=== PATIENT | male | born 1970 | race Two or more races ===

== ENCOUNTER 2017-02-07 15:53 | Emergency (ER) | payer MEDICAID, OTHER ==
[~2017-02-07] VITALS: Ht 170.2 cm; Wt 78.5 kg
[~2017-02-07 15:53] MED LIST: GLIP-115 PO; LISI-275 PO; METF-490 PO
[2017-02-07 16:00] VITALS: BP 132/92
[2017-02-07 16:51] LABS: Basophils # (auto) 0 uL; Basophils % (auto) 0.5 % (0.0-2.0); CONDITION Y; Eosinophils # (auto) 0 uL; Eosinophils % (auto) 0.4 % (0.0-7.0); Hematocrit 47.7 % (41.0-53.0); Hemoglobin 16.5 g/dL (13.5-17.5); Lymphocytes # (auto) 1.3 uL; Lymphocytes % (auto) 16.5 % (10.0-50.0); Mean Corpuscular Hemoglobin 30.3 pg (28.0-32.0); Mean Corpuscular Hgb Conc. 34.7 g/dL (32.0-36.0); Mean Corpuscular Volume 87.2 fL (80.0-100.0); Mean Platelet Volume 9.5 fL (7.4-10.4); Monocytes # (auto) 0.4 uL; Monocytes % (auto) 5.5 % (0.0-12.0); Neutrophils # (auto) 5.9 uL; Neutrophils % (auto) 77.1 % (37.0-80.0); Platelet Count (auto) 229 10^3/uL (140-450); Red Cell Distribution Width 13.5 % (11.6-16.0); White Blood Cell 7.7 10^3/uL (4.4-10.8)
[2017-02-07 17:13] LABS: Albumin 3.8 g/dL (3.4-5.0); Alkaline Phosphatase 110 U/L (45-117); Anion Gap 9 (5-15); Aspartate Aminotransferase 10 U/L (15-37); BUN/Creatinine Ratio 17.4; Bilirubin, Total 0.8 mg/dL (0.2-1.0); Blood Urea Nitrogen 15 mg/dL (7-18); Calcium 8.8 mg/dL (8.5-10.1); Carbon Dioxide 23 mmol/L (21-32); Chloride 103 mmol/L (98-107); GFR African American 123 mL/min; GFR Non-African American 102 mL/min; Glucose 313 mg/dL (74-106); Potassium 3.9 mmol/L (3.5-5.1); Sodium 135 mmol/L (136-145); Total Protein 7.6 g/dL (6.4-8.2)
[2017-02-22] MEDS ORDERED: OMEP20CA74 PO (13:33)
[2017-02-22] MEDS ORDERED: INSUINJ37 SUBCUT (13:34)
== END 2017-02-07 23:42 | disposition left against medical advice (07) ==
LOC: ER 16:08
DX: R07.89 Other chest pain (principal); R06.02 Shortness of breath; Z53.21 Procedure and treatment not carried out due to patient leaving prior to being seen by health care provider
CPT/HCPCS: 36415; 71010; 80053; 84484; 85025; 93005

== ENCOUNTER 2017-02-08 08:43 | Emergency (ER) | payer MEDICAID, OTHER ==
[~2017-02-08] VITALS: Ht 170.2 cm; Wt 78.5 kg
[2017-02-08 10:17] LABS: Albumin 3.6 g/dL (3.4-5.0); Alkaline Phosphatase 99 U/L (45-117); Anion Gap 7 (5-15); Aspartate Aminotransferase 7 U/L (15-37); BUN/Creatinine Ratio 15.7; Bilirubin, Total 0.9 mg/dL (0.2-1.0); Blood Urea Nitrogen 16 mg/dL (7-18); Calcium 8.5 mg/dL (8.5-10.1); Carbon Dioxide 26 mmol/L (21-32); Chloride 102 mmol/L (98-107); GFR African American 101 mL/min; GFR Non-African American 84 mL/min; Magnesium 2.3 mg/dL (1.6-2.6); Potassium 4.1 mmol/L (3.5-5.1); Sodium 135 mmol/L (136-145); Total Protein 7.1 g/dL (6.4-8.2)
[2017-02-08 10:20] LABS: Glucose 453 mg/dL (74-106)
[2017-02-08] MEDS ORDERED: SODIUM CHLORIDE 0.9% 1,000 ML IV ONE (10:45)
[2017-02-08] MEDS ORDERED: InsuLIN REG 1unit/0.01ml Soln (100units/ml) IV ONE (10:45)
[2017-02-08 12:00] VITALS: BP 137/90
== END 2017-02-08 15:10 | disposition home or self-care (01) ==
LOC: ER 08:50
DX: F41.9 Anxiety disorder, unspecified (principal); R00.0 Tachycardia, unspecified; E11.9 Type 2 diabetes mellitus without complications; I10 Essential (primary) hypertension; E78.5 Hyperlipidemia, unspecified
CPT/HCPCS: 36415; 80053; 82962; 83735; 84484; 93005; 94761; 96361; 96374; 99285; J1815

== ENCOUNTER 2017-03-12 15:49 | Inpatient (IN) | payer BC, MEDICAID, OTHER ==
[~2017-03-12] VITALS: Ht 195.6 cm; Wt 79.8 kg
[~2017-03-12 15:49] MED LIST changes: +ASPI81CH43 PO; +ATOR20TA50 PO; +DOCU100C8 PO; +INSUINJ37 SUBCUT; -LISI-275 PO; +MET50T PO; +OMEP20CA74 PO; +TRAM50TA2 PO
[2017-03-12] MEDS ORDERED: SODIUM CHLORIDE 0.9% 1,000 ML IV ONE ×2 (16:00)
[2017-03-12] MEDS ORDERED: VANCOMYCIN 1GM/250ML D5W 250 ML IV ONE (16:00)
[2017-03-12] MEDS ORDERED: DEXTROSE (50%) 50ML SYRG IV PRN (16:30)
[2017-03-12] MEDS ORDERED: VANCOMYCIN PER PHARMACY 0 MG IV SCH (16:30)
[2017-03-12] MEDS ORDERED: ONDANSETRON HCL 4 MG/2 ML VIAL IV PRN (16:30)
[2017-03-12] MEDS ORDERED: LEVOFLOXACIN 500MG 100 ML IV ONE (16:30)
[2017-03-12] MEDS ORDERED: IOHEXOL 300 MG/ML 100ML BOTTLE IJ ONE (16:38)
[2017-03-12 16:47] LABS: Basophils # (auto) 0 uL; Basophils % (auto) 0.6 % (0.0-2.0); Eosinophils # (auto) 0.1 uL; Eosinophils % (auto) 1.1 % (0.0-7.0); Hematocrit 36.7 % (41.0-53.0); Hemoglobin 12.3 g/dL (13.5-17.5); INR 1.03 (0.9-1.15); Lymphocytes # (auto) 1.4 uL; Lymphocytes % (auto) 22.7 % (10.0-50.0); Mean Corpuscular Hemoglobin 29.1 pg (28.0-32.0); Mean Corpuscular Hgb Conc. 33.5 g/dL (32.0-36.0); Mean Corpuscular Volume 86.7 fL (80.0-100.0); Mean Platelet Volume 8.3 fL (6.9-10.8); Monocytes # (auto) 0.5 uL; Monocytes % (auto) 7.9 % (0.0-12.0); Neutrophils # (auto) 4.3 uL; Neutrophils % (auto) 67.7 % (37.0-80.0); Nucleated Red Blood Cells % 0.1 %; Partial Thromboplastin Time 29.4 sec (22.64-33.71); Platelet Count (auto) 342 10^3/uL (140-450); Prothrombin Time 11.2 sec (9.37-12.3); Red Cell Distribution Width 13.3 % (11.8-14.3); White Blood Cell 6.4 10^3/uL (4.4-10.8)
[2017-03-12 16:51] LABS: Albumin 3.1 g/dL (3.4-5.0); Anion Gap 8 (5-15); Aspartate Aminotransferase 9 U/L (15-37); BUN/Creatinine Ratio 13.1; Blood Urea Nitrogen 11 mg/dL (7-18); Calcium 8.5 mg/dL (8.5-10.1); Carbon Dioxide 26 mmol/L (21-32); Chloride 102 mmol/L (98-107); GFR African American 127 mL/min; GFR Non-African American 105 mL/min; Glucose 306 mg/dL (74-106); Potassium 4.2 mmol/L (3.5-5.1); Sodium 136 mmol/L (136-145)
[2017-03-12 17:03] LABS: Alkaline Phosphatase 88 U/L (45-117); Bilirubin, Total 0.4 mg/dL (0.2-1.0)
[2017-03-12] MEDS: ASPirin 81 mg TAB PO SCH (17:11)
[2017-03-12] MEDS: ACCU-CHEK COMFORT CURVE STRIP VI SCH ×2 (17:17→22:24)
[2017-03-12] MEDS: InsuLIN REG 1unit/0.01ml Soln (100units/ml) SC SCH ×2 (17:17→22:46)
[2017-03-12] MEDS: TAMSULOSIN HYDROCHLORIDE 0.4 MG CAP PO SCH (18:00)
[2017-03-12] MEDS: MORPHINE SULF INJ 2 MG/ML SYRINGE 1ML IV PRN (21:12)
[2017-03-12] MEDS ORDERED: METOPROLOL TARTRATE 50 MG TAB PO SCH (22:00)
[2017-03-12] MEDS: ATORVASTATIN 20 MG TAB PO SCH (22:24)
[2017-03-12] MEDS: INSULIN DETEMIR(LEVEMIR) 1unit/0.01ml Soln (100units/ml) SC SCH (22:47)
[2017-03-12] MEDS ORDERED: ACETAMINOPHEN 500 MG TAB PO PRN (23:45)
[2017-03-13] MEDS ORDERED: ACETAMINOPHEN 500 MG TAB PO PRN
[2017-03-13] MEDS: MORPHINE SULF INJ 2 MG/ML SYRINGE 1ML IV PRN ×4 (01:38→20:29)
[2017-03-13 01:56] VITALS: BP 137/76
[2017-03-13 03:00] LABS: Urine RBC None Seen /hpf (0 - 3)
[2017-03-13 03:20] LABS: Urine Bilirubin Negative (Negative); Urine Blood Negative /uL (Negative); Urine Color Yellow (Yellow); Urine Glucose TRACE mg/dL (Normal); Urine Ketone Negative (Negative); Urine Mucus FEW (None Seen); Urine Nitrite Negative (Negative); Urine Squamous Epithelial Cell FEW /hpf (<5); Urine Urobilinogen Normal (Negative)
[2017-03-13 04:58] VITALS: BP 115/72
[2017-03-13] MEDS: VANCOMYCIN 1GM/250ML D5W 250 ML IV SCH ×2 (06:01→17:52)
[2017-03-13] MEDS: InsuLIN REG 1unit/0.01ml Soln (100units/ml) SC SCH ×4 (06:17→22:24)
[2017-03-13] MEDS: INSULIN DETEMIR(LEVEMIR) 1unit/0.01ml Soln (100units/ml) SC SCH ×2 (06:17→22:22)
[2017-03-13] MEDS: HYDROcodone-ACET 5/325MG TAB PO PRN ×2 (06:17→17:51)
[2017-03-13] MEDS: ACCU-CHEK COMFORT CURVE STRIP VI SCH ×4 (06:17→22:14)
[2017-03-13 06:22] LABS: Basophils # (auto) 0.1 uL; Basophils % (auto) 0.7 % (0.0-2.0); Eosinophils # (auto) 0.1 uL; Eosinophils % (auto) 1.3 % (0.0-7.0); Hematocrit 37.8 % (41.0-53.0); Hemoglobin 12.4 g/dL (13.5-17.5); Lymphocytes # (auto) 2.3 uL; Lymphocytes % (auto) 31.1 % (10.0-50.0); Mean Corpuscular Hemoglobin 29.2 pg (28.0-32.0); Mean Corpuscular Hgb Conc. 32.8 g/dL (32.0-36.0); Mean Corpuscular Volume 88.8 fL (80.0-100.0); Mean Platelet Volume 7.9 fL (6.9-10.8); Monocytes # (auto) 0.7 uL; Monocytes % (auto) 9.8 % (0.0-12.0); Neutrophils # (auto) 4.2 uL; Neutrophils % (auto) 57.1 % (37.0-80.0); Platelet Count (auto) 282 10^3/uL (140-450); Red Cell Distribution Width 13.4 % (11.8-14.3); White Blood Cell 7.3 10^3/uL (4.4-10.8)
[2017-03-13 08:41] LABS: BUN/Creatinine Ratio 13.9; Calcium 8.5 mg/dL (8.5-10.1); Potassium 3.8 mmol/L (3.5-5.1)
[2017-03-13 09:00] VITALS: BP 117/74
[2017-03-13] MEDS ORDERED: POTASSIUM CHL 20 Meq TABLET PO ONE (09:15)
[2017-03-13] MEDS: ASPirin 81 mg TAB PO SCH (09:32)
[2017-03-13] MEDS: LEVOFLOXACIN 500MG 100 ML IV SCH (09:33)
[2017-03-13] MEDS ORDERED: METOPROLOL TARTRATE 50 MG TAB PO SCH (10:00)
[2017-03-13] MEDS: Boost Glucose Control 8 Ounces PO SCH ×2 (12:00→17:52)
[2017-03-13 13:00] VITALS: BP 118/74
[2017-03-13] MEDS ORDERED: METOPROLOL TARTRATE 25 MG TAB PO ONE (13:00)
[2017-03-13] MEDS: ENOXAPARIN SOD 40 MG/0.4 ML SYRINGE SC SCH (13:15)
[2017-03-13 17:00] VITALS: BP 109/70
[2017-03-13] MEDS: MICAFUNGIN SODIUM 100 MG in SODIUM CHL 0.9% 100 ML IV SCH (17:05)
[2017-03-13] MEDS: metFORMIN HYDROCHLORIDE 850 MG TAB PO SCH (17:50)
[2017-03-13] MEDS: TAMSULOSIN HYDROCHLORIDE 0.4 MG CAP PO SCH (17:50)
[2017-03-13 22:00] VITALS: BP 121/76
[2017-03-13] MEDS: ATORVASTATIN 20 MG TAB PO SCH (22:12)
[2017-03-13] MEDS: METOPROLOL TARTRATE 50 MG TAB PO SCH (22:14)
[2017-03-14 05:00] VITALS: BP 104/72
[2017-03-14 05:28] LABS: Basophils # (auto) 0.1 uL; Basophils % (auto) 0.9 % (0.0-2.0); Eosinophils # (auto) 0.1 uL; Eosinophils % (auto) 1.3 % (0.0-7.0); Hemoglobin 13.5 g/dL (13.5-17.5); Lymphocytes # (auto) 1.9 uL; Lymphocytes % (auto) 27.1 % (10.0-50.0); Mean Corpuscular Hemoglobin 28.9 pg (28.0-32.0); Mean Corpuscular Hgb Conc. 33.9 g/dL (32.0-36.0); Mean Corpuscular Volume 85.4 fL (80.0-100.0); Mean Platelet Volume 8.2 fL (6.9-10.8); Monocytes # (auto) 0.6 uL; Monocytes % (auto) 9.1 % (0.0-12.0); Neutrophils # (auto) 4.2 uL; Neutrophils % (auto) 61.6 % (37.0-80.0); Nucleated Red Blood Cells % 0.1 %; Platelet Count (auto) 308 10^3/uL (140-450); Red Cell Distribution Width 13.2 % (11.8-14.3); White Blood Cell 6.9 10^3/uL (4.4-10.8)
[2017-03-14 05:52] LABS: Calcium 8.9 mg/dL (8.5-10.1); Potassium 4.1 mmol/L (3.5-5.1)
[2017-03-14 05:57] LABS: BUN/Creatinine Ratio 13.9; Bilirubin, Total 0.5 mg/dL (0.2-1.0); Total Protein 7.3 g/dL (6.4-8.2)
[2017-03-14] MEDS: ACCU-CHEK COMFORT CURVE STRIP VI SCH ×4 (06:27→22:00)
[2017-03-14] MEDS: INSULIN DETEMIR(LEVEMIR) 1unit/0.01ml Soln (100units/ml) SC SCH ×2 (06:28→22:41)
[2017-03-14] MEDS: metFORMIN HYDROCHLORIDE 850 MG TAB PO SCH ×2 (06:28→17:26)
[2017-03-14] MEDS: glipiZIDE 5 MG TAB PO SCH (06:28)
[2017-03-14] MEDS: VANCOMYCIN 1GM/250ML D5W 250 ML IV SCH (06:30)
[2017-03-14] MEDS: InsuLIN REG 1unit/0.01ml Soln (100units/ml) SC SCH ×4 (06:31→22:40)
[2017-03-14] MEDS: MORPHINE SULF INJ 2 MG/ML SYRINGE 1ML IV PRN ×3 (06:41→20:50)
[2017-03-14] MEDS: Boost Glucose Control 8 Ounces PO SCH ×3 (08:00→18:00)
[2017-03-14 09:00] VITALS: BP 137/84
[2017-03-14] MEDS: ASPirin 81 mg TAB PO SCH (10:53)
[2017-03-14] MEDS: METOPROLOL TARTRATE 50 MG TAB PO SCH ×2 (10:53→22:00)
[2017-03-14] MEDS: LEVOFLOXACIN 500MG 100 ML IV SCH (10:54)
[2017-03-14] MEDS: ENOXAPARIN SOD 40 MG/0.4 ML SYRINGE SC SCH (10:55)
[2017-03-14 13:00] VITALS: BP 108/77
[2017-03-14] MEDS ORDERED: VANCOMYCIN 1GM/250ML D5W 250 ML IV SCH (14:00)
[2017-03-14] MEDS: MICAFUNGIN SODIUM 100 MG in SODIUM CHL 0.9% 100 ML IV SCH (16:30)
[2017-03-14] MEDS: TAMSULOSIN HYDROCHLORIDE 0.4 MG CAP PO SCH (17:26)
[2017-03-14 17:28] VITALS: BP 118/71
[2017-03-14 22:00] VITALS: BP 105/66
[2017-03-14] MEDS: ATORVASTATIN 20 MG TAB PO SCH (22:29)
[2017-03-14] MEDS: MULTIPLE VITAMINS W/ MINERALS TAB PO SCH (22:30)
[2017-03-14] MEDS: ASCORBIC ACID 500 MG TAB PO SCH (22:31)
[2017-03-15] MEDS: HYDROcodone-ACET 5/325MG TAB PO PRN ×2 (02:47→09:53)
[2017-03-15 05:00] VITALS: BP 113/71
[2017-03-15 05:34] LABS: Basophils # (auto) 0 uL; Basophils % (auto) 0.4 % (0.0-2.0); Eosinophils # (auto) 0.1 uL; Eosinophils % (auto) 1.2 % (0.0-7.0); Hematocrit 37.1 % (41.0-53.0); Hemoglobin 12.7 g/dL (13.5-17.5); Lymphocytes % (auto) 28.5 % (10.0-50.0); Mean Corpuscular Hemoglobin 29.4 pg (28.0-32.0); Mean Corpuscular Hgb Conc. 34.3 g/dL (32.0-36.0); Mean Corpuscular Volume 85.6 fL (80.0-100.0); Mean Platelet Volume 7.9 fL (6.9-10.8); Monocytes # (auto) 0.7 uL; Monocytes % (auto) 10.1 % (0.0-12.0); Neutrophils # (auto) 4.1 uL; Neutrophils % (auto) 59.8 % (37.0-80.0); Nucleated Red Blood Cells % 0.1 %; Platelet Count (auto) 286 10^3/uL (140-450); Red Cell Distribution Width 13.2 % (11.8-14.3); White Blood Cell 6.9 10^3/uL (4.4-10.8)
[2017-03-15 05:55] LABS: BUN/Creatinine Ratio 15.1; Calcium 8.8 mg/dL (8.5-10.1); Potassium 4.3 mmol/L (3.5-5.1)
[2017-03-15] MEDS: ACCU-CHEK COMFORT CURVE STRIP VI SCH ×4 (06:26→22:23)
[2017-03-15] MEDS: INSULIN DETEMIR(LEVEMIR) 1unit/0.01ml Soln (100units/ml) SC SCH ×2 (06:27→22:42)
[2017-03-15] MEDS: metFORMIN HYDROCHLORIDE 850 MG TAB PO SCH ×2 (06:27→17:28)
[2017-03-15] MEDS: glipiZIDE 5 MG TAB PO SCH (06:27)
[2017-03-15] MEDS: InsuLIN REG 1unit/0.01ml Soln (100units/ml) SC SCH ×4 (06:28→22:42)
[2017-03-15] MEDS: Boost Glucose Control 8 Ounces PO SCH ×3 (08:59→17:57)
[2017-03-15 09:00] VITALS: BP 106/59
[2017-03-15] MEDS: METOPROLOL TARTRATE 50 MG TAB PO SCH ×2 (09:50→22:00)
[2017-03-15] MEDS: ASPirin 81 mg TAB PO SCH (09:50)
[2017-03-15] MEDS: MULTIPLE VITAMINS W/ MINERALS TAB PO SCH ×2 (09:50→22:24)
[2017-03-15] MEDS: LEVOFLOXACIN 500MG 100 ML IV SCH (09:50)
[2017-03-15] MEDS: ASCORBIC ACID 500 MG TAB PO SCH ×2 (09:51→22:24)
[2017-03-15] MEDS: ENOXAPARIN SOD 40 MG/0.4 ML SYRINGE SC SCH (09:52)
[2017-03-15 13:00] VITALS: BP 118/70
[2017-03-15] MEDS: CEFTRIAXONE SODIUM 2 GM in D5W 5% 50 ML IV SCH (15:56)
[2017-03-15] MEDS: MICAFUNGIN SODIUM 100 MG in SODIUM CHL 0.9% 100 ML IV SCH (17:21)
[2017-03-15] MEDS: TAMSULOSIN HYDROCHLORIDE 0.4 MG CAP PO SCH (17:28)
[2017-03-15] MEDS: HYDROcodone-ACET 7.5/325MG TAB PO PRN ×2 (17:29→23:40)
[2017-03-15 17:30] VITALS: BP 97/66
[2017-03-15 20:20] LABS: INR 1.05 (0.9-1.15); Prothrombin Time 11.5 sec (9.37-12.3)
[2017-03-15 22:10] VITALS: BP 108/60
[2017-03-15] MEDS: ATORVASTATIN 20 MG TAB PO SCH (22:23)
[2017-03-16 04:43] VITALS: BP 110/70
[2017-03-16] MEDS: glipiZIDE 5 MG TAB PO SCH (06:33)
[2017-03-16] MEDS: metFORMIN HYDROCHLORIDE 850 MG TAB PO SCH ×2 (06:33→17:30)
[2017-03-16] MEDS: ACCU-CHEK COMFORT CURVE STRIP VI SCH ×4 (06:33→21:23)
[2017-03-16] MEDS: INSULIN DETEMIR(LEVEMIR) 1unit/0.01ml Soln (100units/ml) SC SCH ×2 (06:34→21:22)
[2017-03-16] MEDS: InsuLIN REG 1unit/0.01ml Soln (100units/ml) SC SCH ×4 (06:34→21:22)
[2017-03-16 08:00] VITALS: BP 110/64
[2017-03-16] MEDS: Boost Glucose Control 8 Ounces PO SCH ×3 (09:14→18:06)
[2017-03-16] MEDS: CEFTRIAXONE SODIUM 2 GM in D5W 5% 50 ML IV SCH (09:14)
[2017-03-16] MEDS: ENOXAPARIN SOD 40 MG/0.4 ML SYRINGE SC SCH (10:29)
[2017-03-16] MEDS: MULTIPLE VITAMINS W/ MINERALS TAB PO SCH ×2 (10:30→21:18)
[2017-03-16] MEDS: ASPirin 81 mg TAB PO SCH (10:30)
[2017-03-16] MEDS: LEVOFLOXACIN 500MG 100 ML IV SCH (10:30)
[2017-03-16] MEDS: ASCORBIC ACID 500 MG TAB PO SCH ×2 (10:30→21:18)
[2017-03-16] MEDS: METOPROLOL TARTRATE 50 MG TAB PO SCH ×2 (10:31→21:18)
[2017-03-16] MEDS: HYDROcodone-ACET 7.5/325MG TAB PO PRN ×2 (11:47→20:49)
[2017-03-16 12:00] VITALS: BP 122/81
[2017-03-16] MEDS ORDERED: LIDOCAINE 1% HCL (LOCAL ANESTH.) INJ 20ML MDV ID ONE (15:45)
[2017-03-16 16:54] VITALS: BP 97/58
[2017-03-16] MEDS: TAMSULOSIN HYDROCHLORIDE 0.4 MG CAP PO SCH (17:18)
[2017-03-16] MEDS: MICAFUNGIN SODIUM 100 MG in SODIUM CHL 0.9% 100 ML IV SCH (17:20)
[2017-03-16] MEDS: ATORVASTATIN 20 MG TAB PO SCH (21:17)
[2017-03-16] MEDS: SODIUM CHLOR 0.9% PF (SALINE LOCK) 10ML VIAL IV SCH (21:17)
[2017-03-16 22:00] VITALS: BP 122/79
[2017-03-17 05:00] VITALS: BP 101/57
[2017-03-17 05:49] LABS: Basophils # (auto) 0 uL; Basophils % (auto) 0.7 % (0.0-2.0); Eosinophils # (auto) 0.1 uL; Eosinophils % (auto) 1.5 % (0.0-7.0); Hematocrit 37.2 % (41.0-53.0); Hemoglobin 12.9 g/dL (13.5-17.5); Lymphocytes % (auto) 26.5 % (10.0-50.0); Mean Corpuscular Hemoglobin 29.4 pg (28.0-32.0); Mean Corpuscular Hgb Conc. 34.6 g/dL (32.0-36.0); Mean Corpuscular Volume 84.9 fL (80.0-100.0); Mean Platelet Volume 7.8 fL (6.9-10.8); Monocytes # (auto) 0.6 uL; Monocytes % (auto) 8.5 % (0.0-12.0); Neutrophils # (auto) 4.6 uL; Neutrophils % (auto) 62.8 % (37.0-80.0); Nucleated Red Blood Cells % 0.1 %; Platelet Count (auto) 268 10^3/uL (140-450); Red Cell Distribution Width 12.8 % (11.8-14.3); White Blood Cell 7.4 10^3/uL (4.4-10.8)
[2017-03-17 06:05] LABS: Calcium 8.6 mg/dL (8.5-10.1); Magnesium 2.1 mg/dL (1.6-2.6); Potassium 4.3 mmol/L (3.5-5.1)
[2017-03-17] MEDS: metFORMIN HYDROCHLORIDE 850 MG TAB PO SCH (06:16)
[2017-03-17] MEDS: glipiZIDE 5 MG TAB PO SCH (06:16)
[2017-03-17] MEDS: InsuLIN REG 1unit/0.01ml Soln (100units/ml) SC SCH ×2 (06:18→11:45)
[2017-03-17] MEDS: INSULIN DETEMIR(LEVEMIR) 1unit/0.01ml Soln (100units/ml) SC SCH (06:19)
[2017-03-17] MEDS: ACCU-CHEK COMFORT CURVE STRIP VI SCH ×2 (06:19→11:46)
[2017-03-17] MEDS: HYDROcodone-ACET 7.5/325MG TAB PO PRN (06:21)
[2017-03-17 07:38] VITALS: BP 102/59
[2017-03-17] MEDS: Boost Glucose Control 8 Ounces PO SCH ×2 (08:00→12:00)
[2017-03-17] MEDS: ASPirin 81 mg TAB PO SCH (08:57)
[2017-03-17] MEDS: ENOXAPARIN SOD 40 MG/0.4 ML SYRINGE SC SCH (08:57)
[2017-03-17] MEDS: ASCORBIC ACID 500 MG TAB PO SCH (08:57)
[2017-03-17] MEDS: CEFTRIAXONE SODIUM 2 GM in D5W 5% 50 ML IV SCH (08:57)
[2017-03-17] MEDS: MULTIPLE VITAMINS W/ MINERALS TAB PO SCH (08:57)
[2017-03-17] MEDS: METOPROLOL TARTRATE 50 MG TAB PO SCH (09:00)
[2017-03-17] MEDS: SODIUM CHLOR 0.9% PF (SALINE LOCK) 10ML VIAL IV SCH (10:29)
[2017-03-17 11:15] VITALS: BP 93/60
[2017-03-17] MEDS: LEVOFLOXACIN 500MG 100 ML IV SCH (11:31)
[2017-03-17 13:38] VITALS: BP 93/60
== END 2017-03-17 14:37 | disposition home or self-care (01) | DRG 863 ==
LOC: ER 15:50 → OVERFLOW 15:51 → TELE-EAST 19:55 → EAST 03-16 20:21
PROVIDERS: ADMIT Internal Medicine; ATTEND Internal Medicine
PROC: 02HV33Z Insertion of Infusion Device into Superior Vena Cava, Percutaneous Approach (ICD-10-PCS; principal; 2017-03-16)
DX: T81.4XXA Infection following a procedure, initial encounter (principal); I10 Essential (primary) hypertension; E11.9 Type 2 diabetes mellitus without complications; E78.5 Hyperlipidemia, unspecified; B99.8 Other infectious disease; I25.10 Atherosclerotic heart disease of native coronary artery without angina pectoris; Y83.2 Surgical operation with anastomosis, bypass or graft as the cause of abnormal reaction of the patient, or of later complication, without mention of misadventure at the time of the procedure; K21.9 Gastro-esophageal reflux disease without esophagitis; N35.9 Urethral stricture, unspecified; Z95.1 Presence of aortocoronary bypass graft; Z83.3 Family history of diabetes mellitus; Z82.49 Family history of ischemic heart disease and other diseases of the circulatory system; Z79.899 Other long term (current) drug therapy; Z87.438 Personal history of other diseases of male genital organs; Y92.89 Other specified places as the place of occurrence of the external cause
CPT/HCPCS: 36415; 71010; 71260; 80048; 80053; 80202; 81001; 82962; 83605; 83735; 84484; 85025; 85610; 85730; 87040; 87077; 87081; 87186; 87205; 94761; 96365; 96366; J0696; J1815; J1956; J2248; J7060

== ENCOUNTER 2017-05-13 11:17 | Emergency (ER) | payer BC ==
[~2017-05-13] VITALS: Ht 170.2 cm; Wt 78.0 kg
[2017-05-13 12:04] LABS: Basophils # (auto) 0 uL; Basophils % (auto) 0.8 % (0.0-2.0); Eosinophils # (auto) 0.1 uL; Eosinophils % (auto) 1.2 % (0.0-7.0); Hematocrit 47.2 % (41.0-53.0); Hemoglobin 15.9 g/dL (13.5-17.5); Lymphocytes # (auto) 1.6 uL; Mean Corpuscular Hemoglobin 28.2 pg (28.0-32.0); Mean Corpuscular Hgb Conc. 33.6 g/dL (32.0-36.0); Mean Corpuscular Volume 84.1 fL (80.0-100.0); Monocytes # (auto) 0.4 uL; Monocytes % (auto) 7.2 % (0.0-12.0); Neutrophils # (auto) 3.3 uL; Neutrophils % (auto) 61.8 % (37.0-80.0); Nucleated Red Blood Cells % 0.3 %; Platelet Count (auto) 215 10^3/uL (140-450); Red Cell Distribution Width 14.6 % (11.8-14.3); White Blood Cell 5.4 10^3/uL (4.4-10.8)
[2017-05-13] MEDS ORDERED: LORazepam 0.5 MG TAB PO ONE (12:30)
[2017-05-13 12:40] LABS: Albumin 4.1 g/dL (3.4-5.0); Alkaline Phosphatase 157 U/L (45-117); Anion Gap 11 (5-15); Aspartate Aminotransferase 10 U/L (15-37); BUN/Creatinine Ratio 18.9; Bilirubin, Total 0.5 mg/dL (0.2-1.0); Blood Urea Nitrogen 20 mg/dL (7-18); Calcium 8.7 mg/dL (8.5-10.1); Carbon Dioxide 26 mmol/L (21-32); Chloride 97 mmol/L (98-107); GFR African American 97 mL/min; GFR Non-African American 80 mL/min; Magnesium 2.7 mg/dL (1.6-2.6); Potassium 4.7 mmol/L (3.5-5.1); Sodium 134 mmol/L (136-145); Total Protein 7.9 g/dL (6.4-8.2)
[2017-05-13 12:45] LABS: Glucose 536 mg/dL (74-106)
[2017-05-13] MEDS ORDERED: SODIUM CHLORIDE 0.9% 1,000 ML IV ONE (13:00)
[2017-05-13] MEDS ORDERED: InsuLIN REG 1unit/0.01ml Soln (100units/ml) IV ONE ×2 (13:00→13:30)
[2017-05-13] MEDS ORDERED: InsuLIN REG 1unit/0.01ml Soln (100units/ml) ONE (13:15)
[2017-05-13 14:27] VITALS: BP 129/82
[2017-05-13] MEDS ORDERED: HYDROcodone-ACET 5/325MG TAB PO ONE (14:30)
== END 2017-05-13 14:44 | disposition home or self-care (01) ==
LOC: ER 11:17
DX: F41.9 Anxiety disorder, unspecified (principal); E11.9 Type 2 diabetes mellitus without complications; Z86.73 Personal history of transient ischemic attack (TIA), and cerebral infarction without residual deficits; Z95.1 Presence of aortocoronary bypass graft; Z79.899 Other long term (current) drug therapy; Z79.4 Long term (current) use of insulin
CPT/HCPCS: 36415; 71020; 80053; 82962; 83735; 84484; 85025; 93005; 94761; 96361; 96374; 99285; J1815

== ENCOUNTER 2018-07-02 15:03 | Emergency (ER) | payer BC ==
[~2018-07-02] VITALS: Ht 170.2 cm; Wt 81.6 kg
[2018-07-02 15:10] VITALS: BP 132/87
[2018-07-02 15:28] LABS: Basophils # (auto) 0.1 uL; Eosinophils # (auto) 0.1 uL; Eosinophils % (auto) 1.4 % (0.0-7.0); Hematocrit 47.7 % (41.0-53.0); Hemoglobin 16.7 g/dL (13.5-17.5); Lymphocytes # (auto) 2.3 uL; Lymphocytes % (auto) 33.9 % (10.0-50.0); Mean Corpuscular Hemoglobin 30.3 pg (28.0-32.0); Mean Corpuscular Volume 86.4 fL (80.0-100.0); Monocytes # (auto) 0.4 uL; Monocytes % (auto) 5.9 % (0.0-12.0); Neutrophils % (auto) 57.8 % (37.0-80.0); Nucleated Red Blood Cells % 0.3 %; Platelet Count (auto) 174 10^3/uL (140-450); Red Blood Cells 5.52 10^6/uL (4.5-5.90); Red Cell Distribution Width 13.1 % (11.8-14.3); White Blood Cell 6.8 10^3/uL (4.4-10.8)
[2018-07-02 15:49] LABS: Albumin 3.9 g/dL (3.4-5.0); Amylase 55 U/L (25-115); Anion Gap 6 (5-15); Blood Urea Nitrogen 16 mg/dL (7-18); Calcium 8.6 mg/dL (8.5-10.1); Carbon Dioxide 25 mmol/L (21-32); Chloride 105 mmol/L (98-107); Glucose 299 mg/dL (74-106); Lipase 286 U/L (73-393); Sodium 136 mmol/L (136-145)
[2018-07-02 15:52] LABS: Alanine Aminotransferase 45 U/L (16-61); Alkaline Phosphatase 92 U/L (45-117); Aspartate Aminotransferase 16 U/L (15-37); BUN/Creatinine Ratio 17.4; Bilirubin, Total 0.6 mg/dL (0.2-1.0); GFR African American > 60 mL/min; GFR Non-African American > 60 mL/min; Total Protein 6.8 g/dL (6.4-8.2)
== END 2018-07-02 20:54 | disposition left against medical advice (07) ==
LOC: ER 15:06
DX: R10.31 Right lower quadrant pain (principal); Z53.21 Procedure and treatment not carried out due to patient leaving prior to being seen by health care provider
CPT/HCPCS: 36415; 80053; 82150; 83690; 85025

== ENCOUNTER 2019-03-29 15:29 | Emergency (ER) | payer BC, MEDICAID ==
[~2019-03-29] VITALS: Ht 170.2 cm; Wt 61.2 kg
[~2019-03-29 15:29] MED LIST changes: -GLIP-115 PO; +GLIP5TAB12 PO
[2019-03-29 16:22] LABS: Alanine Aminotransferase 34 U/L (16-61); Albumin 3.6 g/dL (3.4-5.0); Anion Gap 10 (5-15); Aspartate Aminotransferase 16 U/L (15-37); BUN/Creatinine Ratio 12.4; Blood Urea Nitrogen 13 mg/dL (7-18); Calcium 8.1 mg/dL (8.5-10.1); Carbon Dioxide 25 mmol/L (21-32); Chloride 104 mmol/L (98-107); GFR African American 97 mL/min; GFR Non-African American 80 mL/min; Potassium 4.1 mmol/L (3.5-5.1); Sodium 139 mmol/L (136-145)
[2019-03-29 16:24] LABS: INR 0.99 (0.9-1.15); Partial Thromboplastin Time 27.9 sec (23.64-32.05)
[2019-03-29 16:27] LABS: Alkaline Phosphatase 123 U/L (45-117); Bilirubin, Total 0.6 mg/dL (0.2-1.0); Total Protein 6.7 g/dL (6.4-8.2)
[2019-03-29 16:31] LABS: Basophils # (auto) 0.1 uL; Basophils % (auto) 0.9 % (0.0-2.0); Eosinophils # (auto) 0.1 uL; Eosinophils % (auto) 1.1 % (0.0-7.0); Hematocrit 44.3 % (41.0-53.0); Hemoglobin 15.4 g/dL (13.5-17.5); Lymphocytes # (auto) 1.7 uL; Lymphocytes % (auto) 29.4 % (10.0-50.0); Mean Corpuscular Hemoglobin 30.7 pg (28.0-32.0); Mean Corpuscular Hgb Conc. 34.8 g/dL (32.0-36.0); Monocytes # (auto) 0.4 uL; Monocytes % (auto) 6.4 % (0.0-12.0); Neutrophils # (auto) 3.6 uL; Neutrophils % (auto) 62.2 % (37.0-80.0); Platelet Count (auto) 170 10^3/uL (140-450); Red Blood Cells 5.03 10^6/uL (4.5-5.90); Red Cell Distribution Width 13.6 % (11.8-14.3); White Blood Cell 5.7 10^3/uL (4.4-10.8)
[2019-03-29 16:46] LABS: Glucose 410 mg/dL (74-106)
[2019-03-29] MEDS ORDERED: SODIUM CHLORIDE 0.9% 1,000 ML IVB ONE (17:02)
[2019-03-29 17:43] VITALS: BP 113/71
[2019-03-29] MEDS ORDERED: SOD CHL 0.45% 1,000 ML IV ONE (20:00)
[2019-03-29] MEDS ORDERED: INSULIN LANTUS (GLARGINE) 1 /0.01ml (100units/ml) SC ONE (22:00)
== END 2019-03-29 23:06 | disposition home or self-care (01) ==
LOC: ER 15:29
DX: R07.9 Chest pain, unspecified (principal); G45.9 Transient cerebral ischemic attack, unspecified; E11.65 Type 2 diabetes mellitus with hyperglycemia; I25.810 Atherosclerosis of coronary artery bypass graft(s) without angina pectoris; K21.9 Gastro-esophageal reflux disease without esophagitis; E78.5 Hyperlipidemia, unspecified; Z95.1 Presence of aortocoronary bypass graft; Z79.82 Long term (current) use of aspirin; Z79.84 Long term (current) use of oral hypoglycemic drugs; Z79.899 Other long term (current) drug therapy
CPT/HCPCS: 36415; 70450; 71045; 80053; 82962; 84484; 85025; 85610; 85730; 93005; 94761; 96360; 96361; 96372; 99284; J1815; J7030

== ENCOUNTER 2020-04-15 14:54 | Inpatient (IN) | payer BC, MEDICAID ==
[~2020-04-15] VITALS: Ht 170.2 cm; Wt 80.1 kg
[2020-04-15] MEDS ORDERED: MORPHINE SULF INJ 2 MG/ML SYRINGE 1ML IV ONE (15:30)
[2020-04-15] MEDS ORDERED: SODIUM CHLORIDE 0.9% 1,000 ML IV ONE (15:30)
[2020-04-15] MEDS ORDERED: ASPirin 81 mg TAB PO ONE (15:30)
[2020-04-15] MEDS ORDERED: NITROGLYCERIN 0.4 MG SL TAB SL ONE (15:30)
[2020-04-15] MEDS ORDERED: ONDANSETRON HCL 4 MG/2 ML VIAL IV ONE (15:30)
[2020-04-15 16:28] LABS: Basophils # (auto) 0 10 ^3/uL (0-0.2); Basophils % (auto) 0.7 % (0.0-2.0); Eosinophils # (auto) 0.1 10 ^3/uL (0-0.8); Eosinophils % (auto) 0.9 % (0.0-7.0); Hematocrit 41.8 % (41.0-53.0); Hemoglobin 14.6 g/dL (13.5-17.5); Mean Corpuscular Hemoglobin 30.2 pg (28.0-32.0); Mean Corpuscular Hgb Conc. 34.8 g/dL (32.0-36.0); Mean Corpuscular Volume 86.8 fL (80.0-100.0); Monocytes # (auto) 0.5 10 ^3/uL (0-1.3); Monocytes % (auto) 7.5 % (0.0-12.0); Neutrophils # (auto) 4.7 10 ^3/uL (1.6-8.6); Neutrophils % (auto) 74.9 % (37.0-80.0); Nucleated Red Blood Cells % 0.2 %; Platelet Count (auto) 167 10^3/uL (140-450); Red Blood Cells 4.81 10^6/uL (4.5-5.90); Red Cell Distribution Width 13.3 % (11.8-14.3); White Blood Cell 6.3 10^3/uL (4.4-10.8)
[2020-04-15 16:40] LABS: Alanine Aminotransferase 22 U/L (16-61); Albumin 3.4 g/dL (3.4-5.0); Anion Gap 6 (5-15); Aspartate Aminotransferase 9 U/L (15-37); BUN/Creatinine Ratio 12.9; Blood Urea Nitrogen 12 mg/dL (7-18); Calcium 8.2 mg/dL (8.5-10.1); Carbon Dioxide 25 mmol/L (21-32); Chloride 105 mmol/L (98-107); GFR African American 111 mL/min; GFR Non-African American 92 mL/min; Glucose 239 mg/dL (74-106); Magnesium 1.7 mg/dL (1.6-2.6); Potassium 3.8 mmol/L (3.5-5.1); Sodium 136 mmol/L (136-145)
[2020-04-15 16:45] LABS: Alkaline Phosphatase 107 U/L (45-117); Bilirubin, Total 0.7 mg/dL (0.2-1.0); Total Protein 6.8 g/dL (6.4-8.2)
[2020-04-15 16:49] LABS: INR 1.01 (0.9-1.15); Partial Thromboplastin Time 28.7 sec (23.0-31.2)
[2020-04-15] MEDS ORDERED: MORPHINE SULF INJ 2 MG/ML SYRINGE 1ML IV PRN (19:15)
[2020-04-15] MEDS ORDERED: LABETALOL HCL 5 MG/ML 4ML SYRINGE IV PRN (19:15)
[2020-04-15] MEDS ORDERED: NITROGLYCERIN 0.4 MG SL TAB SL PRN (19:15)
[2020-04-15] MEDS ORDERED: ACETAMINOPHEN 500 MG TAB PO PRN (19:15)
[2020-04-15] MEDS ORDERED: ONDANSETRON HCL 4 MG/2 ML VIAL IV PRN (19:45)
[2020-04-15 20:47] VITALS: BP 106/68
[2020-04-15 22:00] VITALS: BP 106/68
[2020-04-15] MEDS ORDERED: METOPROLOL TARTRATE 50 MG TAB PO SCH (22:00)
[2020-04-15] MEDS ORDERED: INSULIN LANTUS (GLARGINE) 1 /0.01ml (100units/ml) SC SCH (22:00)
[2020-04-16] MEDS: ATORVASTATIN 20 MG TAB PO SCH ×2 (00:06→22:23)
[2020-04-16] MEDS: LORazepam 0.5 MG TAB PO PRN ×2 (00:12→22:23)
[2020-04-16 06:15] LABS: Basophils # (auto) 0 10 ^3/uL (0-0.2); Basophils % (auto) 0.7 % (0.0-2.0); Eosinophils # (auto) 0.1 10 ^3/uL (0-0.8); Hematocrit 42.1 % (41.0-53.0); Hemoglobin 14.8 g/dL (13.5-17.5); Lymphocytes # (auto) 1.2 10 ^3/uL (0.4-5.4); Lymphocytes % (auto) 20.7 % (10.0-50.0); Mean Corpuscular Hemoglobin 30.3 pg (28.0-32.0); Mean Corpuscular Hgb Conc. 35.2 g/dL (32.0-36.0); Mean Corpuscular Volume 86.3 fL (80.0-100.0); Monocytes # (auto) 0.6 10 ^3/uL (0-1.3); Monocytes % (auto) 10.6 % (0.0-12.0); Neutrophils # (auto) 3.8 10 ^3/uL (1.6-8.6); Nucleated Red Blood Cells % 0.5 %; Platelet Count (auto) 165 10^3/uL (140-450); Red Blood Cells 4.88 10^6/uL (4.5-5.90); Red Cell Distribution Width 13.4 % (11.8-14.3); White Blood Cell 5.6 10^3/uL (4.4-10.8)
[2020-04-16] MEDS: glipiZIDE 5 MG TAB PO SCH ×2 (06:34→18:09)
[2020-04-16 06:44] LABS: Calcium 8.1 mg/dL (8.5-10.1); Chloride 108 mmol/L (98-107); Potassium 3.6 mmol/L (3.5-5.1); Sodium 140 mmol/L (136-145)
[2020-04-16 06:52] LABS: Alanine Aminotransferase 21 U/L (16-61); Albumin 3.2 g/dL (3.4-5.0); Alkaline Phosphatase 66 U/L (45-117); Anion Gap 7 (5-15); Aspartate Aminotransferase 7 U/L (15-37); BUN/Creatinine Ratio 15.7; Bilirubin, Total 0.7 mg/dL (0.2-1.0); Blood Urea Nitrogen 11 mg/dL (7-18); Carbon Dioxide 25 mmol/L (21-32); Cholesterol 87 mg/dL (< 200); GFR African American 154 mL/min; GFR Non-African American 127 mL/min; Glucose 86 mg/dL (74-106); HDL Cholesterol 39 mg/dL (40-59); LDL Cholesterol 43 mg/dL (< 100); Total Protein 6.3 g/dL (6.4-8.2); Triglycerides 82 mg/dL (< 150)
[2020-04-16] MEDS ORDERED: glipiZIDE 5 MG TAB PO SCH (07:00)
[2020-04-16 08:45] VITALS: BP 122/82
[2020-04-16] MEDS: DOCUSATE SOD 100 MG CAP PO SCH (11:12)
[2020-04-16] MEDS: PANTOPRAZOLE 40 MG TAB PO SCH (11:12)
[2020-04-16] MEDS: ASPirin 81 mg TAB PO SCH (11:13)
[2020-04-16 13:00] VITALS: BP 127/74
[2020-04-16 16:36] VITALS: BP 119/69
[2020-04-16] MEDS: metFORMIN HYDROCHLORIDE 500 MG TAB PO SCH (20:04)
[2020-04-16 22:00] VITALS: BP 152/81
[2020-04-17 05:00] VITALS: BP 107/70
[2020-04-17 05:22] LABS: Basophils # (auto) 0 10 ^3/uL (0-0.2); Basophils % (auto) 0.4 % (0.0-2.0); Eosinophils # (auto) 0.1 10 ^3/uL (0-0.8); Eosinophils % (auto) 1.4 % (0.0-7.0); Hematocrit 42.4 % (41.0-53.0); Hemoglobin 14.9 g/dL (13.5-17.5); Lymphocytes # (auto) 1.4 10 ^3/uL (0.4-5.4); Lymphocytes % (auto) 26.5 % (10.0-50.0); Mean Corpuscular Hemoglobin 30.4 pg (28.0-32.0); Mean Corpuscular Hgb Conc. 35.1 g/dL (32.0-36.0); Mean Corpuscular Volume 86.5 fL (80.0-100.0); Monocytes # (auto) 0.8 10 ^3/uL (0-1.3); Monocytes % (auto) 14.9 % (0.0-12.0); Neutrophils % (auto) 56.8 % (37.0-80.0); Nucleated Red Blood Cells % 0.3 %; Platelet Count (auto) 180 10^3/uL (140-450); Red Blood Cells 4.91 10^6/uL (4.5-5.90); Red Cell Distribution Width 13.5 % (11.8-14.3); White Blood Cell 5.2 10^3/uL (4.4-10.8)
[2020-04-17 05:43] LABS: Chloride 107 mmol/L (98-107); Potassium 3.9 mmol/L (3.5-5.1); Sodium 138 mmol/L (136-145)
[2020-04-17 05:52] LABS: Anion Gap 3 (5-15); BUN/Creatinine Ratio 15.6; Blood Urea Nitrogen 14 mg/dL (7-18); Calcium 8.3 mg/dL (8.5-10.1); Carbon Dioxide 28 mmol/L (21-32); GFR African American 115 mL/min; GFR Non-African American 95 mL/min; Glucose 164 mg/dL (74-106)
[2020-04-17] MEDS: glipiZIDE 5 MG TAB PO SCH ×2 (06:01→17:58)
[2020-04-17] MEDS: PANTOPRAZOLE 40 MG TAB PO SCH (08:34)
[2020-04-17] MEDS: ASPirin 81 mg TAB PO SCH (08:34)
[2020-04-17] MEDS: DOCUSATE SOD 100 MG CAP PO SCH (08:34)
[2020-04-17] MEDS: metFORMIN HYDROCHLORIDE 500 MG TAB PO SCH ×2 (08:34→17:59)
[2020-04-17 08:53] VITALS: BP_SYST 126
[2020-04-17 13:00] VITALS: BP 116/78
[2020-04-17 16:36] VITALS: BP 113/73
[2020-04-17] MEDS: LORazepam 0.5 MG TAB PO PRN (21:18)
[2020-04-17 22:00] VITALS: BP 133/74
[2020-04-17] MEDS: ATORVASTATIN 20 MG TAB PO SCH (22:00)
[2020-04-18 05:00] VITALS: BP 122/71
[2020-04-18 06:15] LABS: Basophils # (auto) 0 10 ^3/uL (0-0.2); Basophils % (auto) 0.5 % (0.0-2.0); Hematocrit 44.9 % (41.0-53.0); Hemoglobin 15.6 g/dL (13.5-17.5); Lymphocytes # (auto) 1.6 10 ^3/uL (0.4-5.4); Lymphocytes % (auto) 29.7 % (10.0-50.0); Mean Corpuscular Hemoglobin 30.3 pg (28.0-32.0); Mean Corpuscular Hgb Conc. 34.8 g/dL (32.0-36.0); Neutrophils # (auto) 2.6 10 ^3/uL (1.6-8.6); Neutrophils % (auto) 49.8 % (37.0-80.0); Nucleated Red Blood Cells % 0.6 %; Platelet Count (auto) 181 10^3/uL (140-450); Red Blood Cells 5.15 10^6/uL (4.5-5.90); Red Cell Distribution Width 13.1 % (11.8-14.3); White Blood Cell 5.2 10^3/uL (4.4-10.8)
[2020-04-18 06:33] LABS: Chloride 105 mmol/L (98-107); Potassium 4.2 mmol/L (3.5-5.1); Sodium 138 mmol/L (136-145)
[2020-04-18 06:45] LABS: Eosinophils # (auto) 0.2 10 ^3/uL (0-0.8)
[2020-04-18 06:46] LABS: Anion Gap 3 (5-15); BUN/Creatinine Ratio 15.3; Blood Urea Nitrogen 15 mg/dL (7-18); Calcium 8.6 mg/dL (8.5-10.1); Carbon Dioxide 30 mmol/L (21-32); GFR African American 105 mL/min; GFR Non-African American 86 mL/min; Glucose 229 mg/dL (74-106)
[2020-04-18] MEDS: glipiZIDE 5 MG TAB PO SCH (06:52)
[2020-04-18] MEDS ORDERED: ADENOSINE 67 MG in GIVE UN-DILUTED 0 ML IV STA (08:38)
[2020-04-18] MEDS: metFORMIN HYDROCHLORIDE 500 MG TAB PO SCH (08:38)
[2020-04-18 09:14] VITALS: BP 102/81
[2020-04-18 09:31] VITALS: BP 129/81
[2020-04-18] MEDS: ASPirin 81 mg TAB PO SCH (10:30)
[2020-04-18] MEDS: PANTOPRAZOLE 40 MG TAB PO SCH (10:30)
[2020-04-18] MEDS: DOCUSATE SOD 100 MG CAP PO SCH (10:31)
[2020-04-18 12:42] VITALS: BP 108/76
[2020-04-18 14:38] VITALS: BP 111/71
== END 2020-04-18 15:20 | disposition home or self-care (01) | DRG 203 ==
LOC: ER 14:54 → TELE-WESTW 14:55
PROVIDERS: ADMIT Family Medicine; ATTEND Internal Medicine
DX: M94.0 Chondrocostal junction syndrome [Tietze] (principal); F12.10 Cannabis abuse, uncomplicated; I25.10 Atherosclerotic heart disease of native coronary artery without angina pectoris; K21.9 Gastro-esophageal reflux disease without esophagitis; E78.00 Pure hypercholesterolemia, unspecified; E78.5 Hyperlipidemia, unspecified; I10 Essential (primary) hypertension; Z82.49 Family history of ischemic heart disease and other diseases of the circulatory system; Z83.3 Family history of diabetes mellitus; Z95.1 Presence of aortocoronary bypass graft; Z79.82 Long term (current) use of aspirin; Z79.899 Other long term (current) drug therapy; Z79.84 Long term (current) use of oral hypoglycemic drugs; Z79.01 Long term (current) use of anticoagulants; R06.03 Acute respiratory distress; E11.65 Type 2 diabetes mellitus with hyperglycemia
CPT/HCPCS: 36415; 70450; 71046; 78452; 80048; 80053; 80061; 82962; 83036; 83735; 83880; 84443; 84484; 85025; 85610; 85730; 93005; 93017; 93306; 93886; G0378; J0153; J2405

== ENCOUNTER 2021-09-28 17:58 | Emergency (ER) | payer OTHER ==
[~2021-09-28] VITALS: Ht 170.2 cm; Wt 81.6 kg
[~2021-09-28 17:58] MED LIST changes: -ASPI81CH43 PO; -DOCU100C8 PO; -GLIP5TAB12 PO; +INSU70IN3 SC; -INSUINJ37 SUBCUT; -MET50T PO; -TRAM50TA2 PO
[2021-09-28 19:36] LABS: Basophils # (auto) 0 10 ^3/uL (0-0.2); Basophils % (auto) 0.7 % (0.0-2.0); Eosinophils # (auto) 0.1 10 ^3/uL (0-0.8); Eosinophils % (auto) 1.1 % (0.0-7.0); Hematocrit 42.6 % (41.0-53.0); Lymphocytes # (auto) 1.4 10 ^3/uL (0.4-5.4); Lymphocytes % (auto) 21.1 % (10.0-50.0); Mean Corpuscular Hemoglobin 29.8 pg (28.0-32.0); Mean Corpuscular Hgb Conc. 35.2 g/dL (32.0-36.0); Mean Corpuscular Volume 84.7 fL (80.0-100.0); Monocytes # (auto) 0.6 10 ^3/uL (0-1.3); Monocytes % (auto) 8.6 % (0.0-12.0); Neutrophils # (auto) 4.7 10 ^3/uL (1.6-8.6); Neutrophils % (auto) 68.5 % (37.0-80.0); Red Blood Cells 5.04 10^6/uL (4.5-5.90); Red Cell Distribution Width 13.7 % (11.8-14.3); White Blood Cell 6.8 10^3/uL (4.4-10.8)
[2021-09-28 19:43] VITALS: BP 124/82
[2021-09-28 19:51] LABS: Albumin 3.3 g/dL (3.4-5.0); Calcium 8.6 mg/dL (8.5-10.1); Potassium 4.3 mmol/L (3.5-5.1)
[2021-09-28 19:54] LABS: Bilirubin, Total 0.6 mg/dL (0.2-1.0); Total Protein 7.1 g/dL (6.4-8.2)
[2021-09-28 19:57] LABS: Lactic Acid w/Reflex 2.3 mmol/L (0.4-2.0)
[2021-09-28] MEDS ORDERED: cefTRIAXone W LIDOCAINE 1 GM IM IM ONE (21:00)
[2021-09-28] MEDS ORDERED: SODIUM CHLORIDE 0.9% 1,000 ML IV ONE ×2 (21:15)
[2021-09-28] MEDS ORDERED: KETOROLAC TROMETH 30 MG/ML 1ML VIAL IV ONE (21:15)
[2021-09-28] MEDS ORDERED: CLINDAMYCIN 600MG IV 50 ML IV ONE (21:15)
[2021-09-28] MEDS ORDERED: IBU600T PO (23:17)
[2021-09-28] MEDS ORDERED: AMOX500T3 PO (23:17)
== END 2021-09-29 02:51 | disposition home or self-care (01) ==
LOC: ER 17:58
DX: L03.116 Cellulitis of left lower limb (principal); E87.2 Acidosis; E44.1 Mild protein-calorie malnutrition; K21.9 Gastro-esophageal reflux disease without esophagitis; E78.5 Hyperlipidemia, unspecified; F12.10 Cannabis abuse, uncomplicated; Z68.28 Body mass index [BMI] 28.0-28.9, adult
CPT/HCPCS: 36415; 73700; 80053; 83605; 85025; 87040; 96361; 96365; 96372; 96375; 99285; J0696; J1885; J3490; J7030

== ENCOUNTER 2021-10-27 11:44 | Emergency (ER) | payer OTHER ==
[~2021-10-27] VITALS: Ht 152.4 cm; Wt 61.2 kg
[~2021-10-27 11:44] MED LIST changes: +AMOX500T3 PO; +IBU600T PO
[2021-10-27 12:25] VITALS: BP 103/82
[2021-10-27] MEDS ORDERED: CEPH-509 PO (13:00)
[2021-10-27] MEDS ORDERED: IBUP800T27 PO (13:00)
== END 2021-10-27 13:27 | disposition home or self-care (01) ==
LOC: ER 11:44
DX: G89.29 Other chronic pain (principal); M79.672 Pain in left foot; E11.9 Type 2 diabetes mellitus without complications; K21.9 Gastro-esophageal reflux disease without esophagitis; E78.5 Hyperlipidemia, unspecified; F12.10 Cannabis abuse, uncomplicated; Z87.2 Personal history of diseases of the skin and subcutaneous tissue

== ENCOUNTER 2022-02-23 17:33 | Emergency (ER) | payer OTHER ==
[~2022-02-23] VITALS: Ht 170.2 cm; Wt 81.8 kg
[~2022-02-23 17:33] MED LIST changes: +CEPH-509 PO; +IBUP800T27 PO
[2022-02-23 18:35] LABS: Basophils # (auto) 0.1 10 ^3/uL (0-0.2); Basophils % (auto) 1.2 % (0.0-2.0); Eosinophils # (auto) 0.1 10 ^3/uL (0-0.8); Eosinophils % (auto) 1.4 % (0.0-7.0); Hematocrit 39.2 % (41.0-53.0); Hemoglobin 13.6 g/dL (13.5-17.5); Lymphocytes # (auto) 1.5 10 ^3/uL (0.4-5.4); Lymphocytes % (auto) 27.3 % (10.0-50.0); Mean Corpuscular Hemoglobin 29.5 pg (28.0-32.0); Mean Corpuscular Hgb Conc. 34.8 g/dL (32.0-36.0); Mean Corpuscular Volume 84.9 fL (80.0-100.0); Monocytes # (auto) 0.4 10 ^3/uL (0-1.3); Monocytes % (auto) 7.2 % (0.0-12.0); Neutrophils # (auto) 3.6 10 ^3/uL (1.6-8.6); Neutrophils % (auto) 62.9 % (37.0-80.0); Nucleated Red Blood Cells % 0.1 %; Red Blood Cells 4.62 10^6/uL (4.5-5.90); Red Cell Distribution Width 13.5 % (11.8-14.3); White Blood Cell 5.6 10^3/uL (4.4-10.8)
[2022-02-23 18:51] LABS: INR 1.05 (0.9-1.15); Partial Thromboplastin Time 29.8 sec (24.6-33.4)
[2022-02-23 18:54] LABS: Albumin 3.1 g/dL (3.4-5.0); BUN/Creatinine Ratio 15.8; Calcium 7.7 mg/dL (8.5-10.1); Magnesium 1.8 mg/dL (1.6-2.6); Potassium 4.3 mmol/L (3.5-5.1)
[2022-02-23 18:57] LABS: Bilirubin, Total 0.5 mg/dL (0.2-1.0); Total Protein 5.7 g/dL (6.4-8.2)
[2022-02-23 21:00] VITALS: BP 110/72
[2022-02-23 21:15] LABS: Alcohol, Urine < 3.0 mg/dL (0-10); Amphetamine Screen, Urine POSITIVE (NEGATIVE); Barbiturate Scree,Urine NEGATIVE (NEGATIVE); Benzodiazephine Screen, Urine NEGATIVE (NEGATIVE); Cannabinoid Screen, Urine POSITIVE (NEGATIVE); Cocaine Screen, Urine NEGATIVE (NEGATIVE); Opiate Scree,Urine NEGATIVE (NEGATIVE); Phencyclidine Screen, Urine NEGATIVE (NEGATIVE)
== END 2022-02-23 21:02 | disposition home or self-care (01) ==
LOC: EDUNIT# 17:33 → EDBD 17:33 → ER 17:41
DX: R07.89 Other chest pain (principal); F15.10 Other stimulant abuse, uncomplicated; F12.10 Cannabis abuse, uncomplicated; I25.10 Atherosclerotic heart disease of native coronary artery without angina pectoris; E78.5 Hyperlipidemia, unspecified; E11.9 Type 2 diabetes mellitus without complications; K21.9 Gastro-esophageal reflux disease without esophagitis; Z95.1 Presence of aortocoronary bypass graft; Z79.4 Long term (current) use of insulin; Z79.2 Long term (current) use of antibiotics; Z79.1 Long term (current) use of non-steroidal anti-inflammatories (NSAID); Z79.899 Other long term (current) drug therapy
CPT/HCPCS: 36415; 71045; 80053; 80307; 82962; 83735; 84484; 85025; 85610; 85730; 93005